=== PATIENT | male | born 1960 | race Caucasian/White ===

== ENCOUNTER 2018-03-03 09:24 | Outpatient (CLI) | payer MEDICAID | END 2018-03-03 09:25 | disposition home or self-care (01) | LOC: C.PAT 09:24 | DX: K40.90 Unilateral inguinal hernia, without obstruction or gangrene, not specified as recurrent (principal) ==

== ENCOUNTER 2018-03-07 05:47 | Day surgery (SDC) | payer MEDICAID | END 2018-03-07 14:30 | disposition home or self-care (01) | LOC: C.SDS 05:47 | DX: K40.90 Unilateral inguinal hernia, without obstruction or gangrene, not specified as recurrent (principal) ==

== ENCOUNTER 2018-03-14 14:03 | Emergency (ER) | payer MEDICAID ==
[2018-03-14 14:04] VITALS: BMI 31.6
[2018-03-14] MEDS ORDERED: Sodium Chloride 0.9% 1,000 ML IV ONE (15:44)
--- NOTE | 2018-03-14 15:46 | C.PDOC ---
History Of Present Illness 57 y/o male presents to the ER complaining of abdominal pain and constipation s/p hernia repair by on 03/07/18. Patient states that he also has some abdominal distention. Patient reports that he has been straining to go to the bathroom. He notes that he was evaluated by his PMD, today and advised him to visit the ER.Denies having fever, chills, nausea, vomiting, dysuria, and hematuria. Time Seen by Provider: 03/14/18 15:36 Chief Complaint (Nursing): Abdominal Pain History Per: Patient History/Exam Limitations: no limitations Onset/Duration Of Symptoms: Days Current Symptoms Are (Timing): Still Present Severity: Moderate Past Medical History Reviewed: Historical Data, Nursing Documentation, Vital Signs Vital Signs: Last Vital Signs Temp 98.6 F 03/14/18 14:47 Pulse 79 03/14/18 14:47 Resp 14 03/14/18 14:47 BP 126/84 03/14/18 14:47 Pulse Ox 98 03/14/18 14:47 - Medical History PMH: No Chronic Diseases Other Surgeries: Hx of surgeries Family History: States: No Known Family Hx - Social History Hx Alcohol Use: No Hx Substance Use: No - Immunization History Hx Tetanus Toxoid Vaccination: No Hx Influenza Vaccination: Yes Hx Pneumococcal Vaccination: No Review Of Systems Except As Marked, All Systems Reviewed And Found Negative. Constitutional: Negative for: Fever, Chills Gastrointestinal: Positive for: Abdominal Pain, Constipation. Negative for: Nausea, Vomiting, Diarrhea Genitourinary: Negative for: Dysuria Physical Exam - Physical Exam Appears: Other (mildly uncomfortable) Skin: Normal Color, Warm, Dry Head: Atraumatic, Normacephalic Eye(s): bilateral: Normal Inspection Nose: Normal Oral Mucosa: Moist Neck: Supple Chest: Symmetrical Cardiovascular: Rhythm Regular Respiratory: Normal Breath Sounds, No Rales, No Rhonchi, No Wheezing Gastrointestinal/Abdominal: Soft, Tenderness (LLQ and left periumbilical tenderness), No Guarding, No Rebound, Other (well healing laporoscopic surgical scars) Neurological/Psych: Oriented x3, Normal Speech ED Course And Treatment - Laboratory Results Result Diagrams: 03/14/18 16:02 03/14/18 16:02 O2 Sat by Pulse Oximetry: 98 (RA) Pulse Ox Interpretation: Normal Progress Note: Labs and X-Ray- Abd Obs. Series ordered. Patient treated wih Colace PO, Magnesium Citrate PO, Dulcolax CT, and IV Fluids. Patient evaluated by general surgery team working with Dr. Blackmon - recommend meds for constipation, if (+) BM can be d/c home. Disposition Counseled Patient/Family Regarding: Studies Performed, Diagnosis, Need For Followup, Rx Given - Disposition Referrals: Becki Pichardo MD [Staff Provider] - Antony Baum MD [Staff Provider] - Disposition: HOME/ ROUTINE Disposition Time: 18:00 Condition: STABLE Additional Instructions: FOLLOW UP WITH YOUR DOCTOR IN 1-2 DAYS, AND WITH YOUR SURGEON WITHIN 1 WEEK USE COLACE DAILY, AND MAGNESIUM CITRATE NEEDED INCREASE WATER AND FIBER IN YOUR DIET RETURN TO ER IF YOUR SYMPTOMS WORSEN Prescriptions: Docusate [Colace] 100 mg PO DAILY #30 cap Magnesium Citrate [Citrate of Mag] 300 ml PO ONCE PRN #1 bottle PRN Reason: Constipation Instructions: Constipation, Adult (DC) Forms: [employer] (Occitan) Print Language: TONGAN - Clinical Impression Clinical Impression: Constipation - Scribe Statement The provider has reviewed the documentation as recorded by the Nury Morrow Provider Attestation: All medical record entries made by the Darlinibpayton were at my direction and personally dictated by me. I have reviewed the chart and agree that the record accurately reflects my personal performance of the history, physical exam, medical decision making, and the department course for this patient. I have also personally directed, reviewed, and agree with the discharge instructions and disposition.
[2018-03-14 16:09] LABS: BASO # 0.1 K/uL (0.0-0.2); BASO % 1.4 % (0.0-2.0); EOS # 0.2 K/uL (0.0-0.7); EOS % 3.2 % (0.0-4.0); HEMOGLOBIN 13.8 g/dL (12.0-18.0); LYMPH # 1.8 K/uL (1.0-4.3); LYMPH % 33.5 % (20.0-40.0); MEAN CELL VOLUME 87.9 fL (80.0-94.0); MEAN CORPUSCULAR HEMOGLOBIN 29.5 pg (27.0-31.0); MEAN CORPUSCULAR HGB CONC 33.6 g/dL (33.0-37.0); MEAN PLATELET VOLUME 8.3 fL (7.2-11.7); MONO # 0.5 K/uL (0.0-0.8); MONO % 8.9 % (0.0-10.0); NEUT # 2.9 K/uL (1.8-7.0); RBC 4.66 Mil/uL (4.40-5.90); RED CELL DISTRIBUTION WIDTH 13.4 % (11.5-14.5); WHITE BLOOD COUNT 5.4 K/uL (4.8-10.8)
[2018-03-14 16:27] LABS: ALB/GLOB RATIO 1.4 (1.0-2.1); ALBUMIN 4.4 g/dL (3.5-5.0); ALT/SGPT 40 U/L (21-72); AST/SGOT 32 U/L (17-59); BLOOD UREA NITROGEN 19 mg/dL (9-20); CALCIUM 9.3 mg/dl (8.6-10.4); GFR NON-AFRICAN AMERICAN > 60
--- NOTE | 2018-03-14 16:41 | RAD ---
Date of service: 03/14/2018 PROCEDURE: Radiographs of the chest and abdomen (obstructive series) HISTORY: abd pain, constipation, postop, r/o sbo COMPARISON: None available. TECHNIQUE: AP radiograph of the chest, with upright and supine radiographs of the abdomen. FINDINGS: CHEST: Heart size appears within normal limits. No focal consolidation, significant pleural effusion, or definite pneumothorax. Please note that chest x-ray has limited sensitivity for the detection of pulmonary masses. ABDOMEN AND PELVIS: Nonspecific loop of small bowel in the right mid abdomen with overall nonspecific bowel gas pattern. Moderate constipation. No definite free air. Mild curvature of the lumbar spine convex the left. IMPRESSION: Nonspecific loop of small bowel in the right mid abdomen with overall nonspecific bowel gas pattern. Correlate clinically. Moderate constipation.
[2018-03-14] MEDS ORDERED: Magnesium Citrate Oral SOL (300 ml) PO ONE (17:01)
[2018-03-14] MEDS ORDERED: Magnesium Citrate Oral SOL (300 ml) ONE (17:29)
[2018-03-14 18:29] VITALS: BP 125/80; PULSE 75; RESP 16; TEMP 98.5; O2SAT 99
== END 2018-03-14 18:28 | disposition home or self-care (01) ==
LOC: C.ER 14:03
DX: K59.00 Constipation, unspecified (principal)
CPT/HCPCS: 74022; 80053; 85025; 99284; J7030

== ENCOUNTER 2018-04-20 08:59 | Day surgery (SDC) | payer MEDICAID ==
[2018-04-20] MEDS ORDERED: Lactated Ringer's 1,000 ML IV ONE (10:20)
[2018-04-20] MEDS ORDERED: Propofol 10 mg/ml Inj (20 ML) ONE ×2 (10:21→10:33)
[2018-04-20 10:45] VITALS: BMI 24.6
[2018-04-20 10:48] VITALS: PULSE 74; RESP 19; TEMP 97.9; O2SAT 99
[2018-04-20 11:30] VITALS: BP 123/69
== END 2018-04-20 12:45 | disposition home or self-care (01) ==
LOC: C.ENDO 08:59
PROVIDERS: ATTEND Internal Medicine Gastroenterology
DX: Z12.11 Encounter for screening for malignant neoplasm of colon (principal); K64.0 First degree hemorrhoids; Z80.42 Family history of malignant neoplasm of prostate
CPT/HCPCS: 45378; J2704; J7120